=== PATIENT | male | born 1990 | race Caucasian/White ===

== ENCOUNTER 2021-09-12 07:58 | Emergency (ER) | payer OTHER ==
[2021-09-12] MEDS ORDERED: Lidocaine 1% with EPINEPHrine 1:100,000 50 ML MDV INFILT ONE (08:14)
[2021-09-12] MEDS ORDERED: Bacitracin Oint 1 GM U/D Packet TOP ONE (08:45)
[2021-09-12] MEDS ORDERED: Diphtheria,Pertussis(Acell),Tetanus Vaccine 0.5 ML Syringe IM ONE (08:45)
== END 2021-09-12 09:15 | disposition home or self-care (01) ==
LOC: JP.ED 07:58
DX: S01.81XA Laceration without foreign body of other part of head, initial encounter (principal); Z72.0 Tobacco use; Z23 Encounter for immunization; W22.09XA Striking against other stationary object, initial encounter
CPT/HCPCS: 12052; 90471; 90715; 99282-25